=== PATIENT | female | born 1990 | race Caucasian/White ===

== ENCOUNTER 2018-10-06 00:30 | Emergency (ER) | payer SELFPAY ==
[~2018-10-06] VITALS: Ht 170.2 cm; Wt 83.5 kg
[2018-10-06] MEDS ORDERED: FAMOTIDINE 20 MG/2 ML VIAL IV STA (01:16)
[2018-10-06] MEDS ORDERED: FAMOTIDINE 20 MG/2 ML VIAL IV ONE (01:22)
[2018-10-06] MEDS ORDERED: DIPHENHYDRAMINE HCL INJ 50 MG/ML VIAL ONE (01:22)
[2018-10-06] MEDS ORDERED: METHYLPREDNISOLONE SOD SUCC 125 MG/2ML VIAL IV ONE (01:30)
[2018-10-06] MEDS ORDERED: DIPHENHYDRAMINE HCL INJ 50 MG/ML VIAL IV ONE (01:30)
== END 2018-10-06 02:01 | disposition home or self-care (01) ==
LOC: ER 00:30
DX: L50.0 Allergic urticaria (principal); Z86.718 Personal history of other venous thrombosis and embolism
CPT/HCPCS: 99283; J1200; J2930

== ENCOUNTER 2022-04-22 18:59 | Emergency (ER) | payer OTHER ==
[~2022-04-22] VITALS: Ht 170.2 cm; Wt 83.5 kg
[2022-04-22] MEDS ORDERED: CYCLOBENZAPRINE5 MG PO (19:35)
== END 2022-04-22 20:00 | disposition home or self-care (01) ==
LOC: FSED 19:09
DX: M54.2 Cervicalgia (principal); S13.4XXA Sprain of ligaments of cervical spine, initial encounter; V43.52XA Car driver injured in collision with other type car in traffic accident, initial encounter; Y92.488 Other paved roadways as the place of occurrence of the external cause; Z86.711 Personal history of pulmonary embolism
CPT/HCPCS: 99282

== ENCOUNTER 2023-02-16 03:31 | Emergency (ER) | payer SELFPAY ==
[~2023-02-16] VITALS: Ht 170.2 cm; Wt 83.5 kg
[~2023-02-16 03:31] MED LIST: CYCLOBENZAPRINE5 MG PO
[2023-02-16 03:52] VITALS: O2SAT 100
== END 2023-02-16 04:43 | disposition home or self-care (01) ==
LOC: FSED 03:59
DX: S93.692A Other sprain of left foot, initial encounter (principal); X50.1XXA Overexertion from prolonged static or awkward postures, initial encounter; Y92.89 Other specified places as the place of occurrence of the external cause; Z86.718 Personal history of other venous thrombosis and embolism
CPT/HCPCS: 99283